=== PATIENT | female | born 1960 | race Caucasian/White ===

== ENCOUNTER 2017-02-09 20:36 | Emergency (ER) | payer MEDICAID ==
[2017-02-09 20:44] VITALS: BP 148/87; BMI 33.3
[2017-02-09] MEDS ORDERED: VALIUM INJ IM ONE (21:14)
--- NOTE | 2017-02-09 21:15 | DR.GENAD ---
HPI - Complaint/Symptoms Chief Complaint Doctors Comments: Patient has a history of falling but will not use her walker. She states that the pain feels more like spasm in the lower back. Chief Complaint:: PT STATES THAT SHE SLIPPED IN THE SHOWER. DENIES LOC. A&O X4. PT C/O BUTT AND BACK PAIN. - Source History Provided: Patient - Mode of Arrival Mode of Arrival: Ambulatory - Timing Onset of Chief Complaint: 02/09/17 PMH - PMH Past Medical History: Yes Past Medical History: Anxiety, Asthma, COPD, Depression, Migraines, GERD Past Surgical History: Yes Surgical History: Hysterectomy, Ortho Surgery - Family History History of Family Medical Conditions: Yes Family Medical History: Diabetes Mellitus, Cancer, [place], Heart Failure, Hypertension - infectious screening Have you traveled outside the country in the last 6 months?: No ROS - Review of Systems Eyes: No Symptoms Reported ENTM: No Symptoms Reported Respiratoy: No Symptoms Reported Cardiovascular: No Symptoms Reported Gastrointestinal/Abdominal: No Symptoms Reported Genitourinary: No Symptoms Reported Neurological: No Symptoms Reported Musculoskeletal: Back Pain (low back pain) Integumentary: No Symptoms Reported Hematologic/Lymphatic: No Symptoms Reported Endocrine: No Symptoms Reported Psychiatric: No Symptoms Reported All Other Systems: Reviewed and Negative PE - Vital Signs Vitals: Temperature 98.3 F Pulse Rate 100 Respiratory Rate 18 Blood Pressure 148/87 O2 Sat by Pulse Oximetry 92 - General Limitations: No Limitations General Appearance: Alert, In No Apparent Distress - Head Head Exam: Normal Inspection, Atraumatic - Eyes Eye exam: Normal Appearance, PERRL, EOMI - ENT ENT Exam: Normal Exam External Ear Exam: Normal External Inspection TM/Canal Exam: Bilateral Normal Nose Exam: Normal Nose Exam Mouth Exam: Normal Inspection Throat Exam: Normal Inspection - Neck Neck Exam: Normal Inspection - Chest Chest Inspection: Normal Inspection - Respiratory Respiratory Exam: Normal Lung Sounds Bilat Respiratory Exam: Bilateral Clear to Auscultation - Cardiovascular Cardiovascular Exam: Regular Rate, Normal Rhythm - Abdominal Exam Abdominal Exam: Normal Inspection, Normal Bowel Sounds Abdominal Tenderness: negative: RUQ, RLQ, LUQ, LLQ, Epigastrium, Suprapubic, Diffuse, Mild, Moderate, Severe, Other - Extremities Extremities Exam: Normal Inspection, Full ROM - Back Back Exam: Paraspinal Tenderness, Vertebral Tenderness (low back) - Neurologic Neurological Exam: Alert, Oriented X3, CN II-XII Intact - Psychiatric Psychiatric Exam: Normal Affect, Normal Mood - Skin Skin Exam: Warm, Dry, Intact - Diagnosis Discharge Problem: Muscle spasm Back pain Qualifiers: Back pain location: low back pain Chronicity: acute Back pain laterality: bilateral Sciatica presence: without sciatica Qualified Code(s): M54.5 - Low back pain - Discharge Plan Condition: Stable - Follow ups/Referrals Follow ups/Referrals: Fadia Romero [Primary Care Provider] - 3 days - Instructions
[2017-02-09] MEDS ORDERED: VALIUM INJ ONE (21:27)
== END 2017-02-09 21:31 | disposition home or self-care (01) ==
LOC: ER 20:54
DX: M62.838 Other muscle spasm (principal); M54.5 Low back pain; W18.49XA Other slipping, tripping and stumbling without falling, initial encounter; Y92.89 Other specified places as the place of occurrence of the external cause
CPT/HCPCS: 96372; 99282; J3360